=== PATIENT | male | born 1955 | race Hispanic/Latino ===

== ENCOUNTER 2023-11-06 20:57 | Inpatient (IN) | payer OTHER, SELFPAY ==
[2023-11-06] VITALS (13 sets, daily range): BP systolic 92–129; BP diastolic 54–80; PULSE 72–92; BMI 28.0
[2023-11-06] MEDS: TYLENOL 1000 MG PO ×2 (12:27→19:24)
[2023-11-06] MEDS: NSS 1000 IV ×3 (12:33→21:39)
--- NOTE | 2023-11-06 12:35 | ED.GENMED ---
History of Present Illness
General
Chief Complaint: Cold/Flu/URI Symptoms
Source: patient and family
Exam Limitations: none
Time Seen by Provider: 11/06/23 12:09
Nursing documentation reviewed up to this point in time: agreed with
History of Present Illness
History of Present Illness:
67 y/o M NIDDM
4 days headache, sore throat, bodyaches, nausea, lack of appetite, lightheadedness with standing
covid vaccinated x 3
no home covid tests
heaadche 08/22
no vision changes, room spinning dizziness, neck pain, neck stiffness, rash, chest pain, abd pain, cough
pt has taken something like asa for the headache but othing today and it hasn't helped
Past History
Past History
ED Past Medical History: HTN, NIDDM and Other (Diabetes, gout,)
ED Past Surgical History: None
Social History
Tobacco: Non-smoker
Alcohol: None
Personal:
Living: with family
Family History
Family History: Diabetes
Review of Systems
Review of Systems
Allergies reviewed?: Yes
All Other Systems: Not applicable
Phy Exam
Physical Exam
Physical Exam:
GENERAL: Alert , in no apparent distress
nontoxic
EYE: pupils equal and reactive
NECK: Supple, full rom
ENT: o/p clr, mmm. minimal pharyngeal erythema; no excduate
no ANA CRISTINA
ears normal
CARDIAC:mild tachycardia, no murmur
LUNGS: Clear breath sounds bilaterally, no acute respiratory distress, no wheezes/rales/rhonchi
ABDOMEN: Soft, minimal epigastric tenderness, no r/g, no cvat, normal bowel sounds
NEUROLOGICAL: Alert and oriented, no focal neuro deficits
SKIN: Warm and dry, skin intact. no rashes
MUSCULOSKELETAL: No edema, well perfused. neg jeaneth's sign
PSYCH: Normal and appropriate interaction.
Course
Orders/Labs/Results
Orders:
Orders
11/06/23 11:08
Electrocardiogram (*1) Urgent
Reason for Study: Tachycardia
EKG- Treatment ONCE
11/06/23 11:55
COVID-19 Antigen Urgent
Source: Nasal Swab
11/06/23 12:21
IV Insert/Care/Rem.- Treatment PRN
Acetaminophen [Tylenol] 1,000 mg PO NOW STA
11/06/23 12:30
0.9% Sodium Chloride 1000 ml [Nss] 1,000 ml IV Wide Open mls/hr
11/06/23 12:33
Complete Blood Count/With Diff Urgent
Comprehensive Metabolic Panel Urgent
Lipase Urgent
Comment: ADD ON
Lyme Progressive Urgent
Comment: ADD ON
Monotest Urgent
Comment: ADD ON
11/06/23 12:58
Add On- LAB Urgent
Tests Added?: lyme progressive, mono
11/06/23 13:05
Urinalysis Reflex To Culture Urgent
Date Specimen was Collected: 11/06/23
Time Specimen was Collected: 12:52
Urine Microscopic Reflex Cult Urgent
Urine Culture Urgent
[facility] Source: U
Specimen Description:
Date Specimen was Collected: 11/06/23
Time Specimen was Collected: 12:52
11/06/23 13:28
US Abdomen Complete/Upper Urgent
Comment:
Reason For Exam: fever, abd pain, vomiting, elev bili
11/06/23 16:04
CR Chest - 2 Views Urgent
Comment:
Reason For Exam: fever
11/06/23 16:06
Add On- LAB Urgent
Tests Added?: Blood Parasites
Add On- LAB Urgent
Tests Added?: lipase
11/06/23 16:23
CT Abd/Pel (IV only)-DH only Urgent
Comment:
Reason For Exam: upper belly pain, fever, vomiting
11/06/23 16:49
Blood Parasites Routine
[facility] Source: B
Specimen Description:
11/06/23 16:52
0.9% Sodium Chloride 1000 ml [Nss] 1,000 ml IV BOLUS
11/06/23 17:09
0.9% Sodium Chloride 1000 ml [Nss] 1,000 ml IV BOLUS
11/06/23 19:19
Blood Culture Urgent
[facility] Source: Blood/Venous
Specimen Description:
11/06/23 19:22
Acetaminophen [Tylenol] 1,000 mg .ROUTE .STK-MED ONE
11/06/23 19:24
Acetaminophen [Tylenol] 1,000 mg PO NOW STA
Abnormal Lab Results
11/06/23 11/06/23
12:33 13:05
RBC 3.80 L 10^6/uL
(4.70-6.10)
Hgb 11.3 L g/dL
(13.0-18.0)
Hct 31.6 L %
(39.0-52.0)
Abs Immat Gran (auto) 0.2 H 10^3/uL
(0-0.05)
Absolute Monos (auto) 1.9 H 10^3/uL
(0.1-0.6)
Immature Gran % 1.4 H %
(0-0.5)
Monocytes % 17.8 H %
(1.7-9.3)
Sodium 131 L mmol/L
(135-145)
Carbon Dioxide 20 L mmol/L
(22-30)
BUN 31 H mg/dl
(9-20)
Glucose 256 H mg/dl
(70-99)
Calcium 8.2 L mg/dl
(8.4-10.2)
Total Bilirubin 3.1 H mg/dl
(0.2-1.3)
AST 71 H U/L
(17-59)
Lipase 729 H U/L
(23-300)
Urine Ketones 1+ A
(Negative)
Ur Occult Blood Reflex 2+ A
(Negative)
Urine Nitrite (Reflex) Positive A
(Negative)
Urine Bilirubin 1+ A
(Negative)
Urine Urobilinogen 3+ A
(Neg - 1+)
Leukocyte Esterase Rfl Trace A
(Negative)
Urine RBC 3-6 A /HPF
(0-2)
Urine Bacteria (Reflex) Many A
(Negative)
Urine Glucose 1+ A
(Negative)
Urine Albumin (Reflex) 1+ A
(Neg - Trace)
11/06/23 12:33
11/06/23 12:33
Vital Signs
Initial and Last Documented VS:
Initial Vital Signs
Temp Pulse Resp BP Pulse Ox
98.3 F 108 17 127/80 99
11/06/23 11:04 11/06/23 11:04 11/06/23 11:04 11/06/23 11:04 11/06/23 11:04
Last Documented Vital Signs
Temp Pulse Resp BP Pulse Ox
102.8 F H 95 38 92/58 95
11/06/23 19:23 11/06/23 20:20 11/06/23 20:20 11/06/23 20:20 11/06/23 20:20
MDM/Problems Addressed
Differential Diagnosis Includes:
covid, mono, cholecystitis, babesiosis, lyme, uti
MDM/Problems Addressed:
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
4 days headache, myalgias, sore throat, abd pain, nausea, lack of appetite, fatigue
no known tick bites/rashes
febrile, nontoxic, no meningimus, minimal epigastric tenderness
labs show nl wbc, bun 31, cr normal, ast 71, t bili 3, lipase 729
US no cholecystitis; some sludge
cxr clear
ct some possible subtle pyelo, duodenitis, maybe mild pancreatic inflam
pt spiked fever again after his temp improved with t ylenol
i'm wondering if he has lyme or babesiosis
but his urine is nitrite pos, no wbc, but many bacteria; i thought it was false pos from the bili but with the ct finding, i did culture him and give rocephin; ordered lyme and periph smear for babesiosis\\
admit for further w/u
*Critical Care Note
Total Time (30-74mins, 75-104mins- exclusive of procedures): Not Applicable
ED Attending Note
-
Portions of this chart may have been created with voice recognition software.� Occasional wrong word or��sound alike� substitutions may have occurred due to the inherent limitations of voice recognition software.
Discharge Plan
Departure
Patient Disposition: Admit
Date of Disposition: 11/06/23
Time of Disposition: 18:43
Admit to: Med/Surg
Presentation/result/management discussed w/ accepting MD/DO: Hospitalist
Condition: Fair
Covid-19: Not Applicable
Discharge Problem:
Pyelonephritis, Fever, Hyperglycemia, Hyperbilirubinemia
Prescriptions:
No Action
metformin 500 MG tablet
500 mg PO BID@0800,1700
allopurinol 100 MG tablet
100 mg PO DAILY
Patient Comments:
pt says he took this morning, pharmacy says that he has not filled since july 2018 for 30 day supply
fenofibrate nanocrystallized 145 MG tablet
145 mg PO DAILY
atorvastatin 40 mg tablet
40 mg PO DAILY
glimepiride 4 mg tablet
4 mg PO DAILY
Referrals:
UNKNOWN - PT DOES,NOT KNOW [Family Provider] -
Interventions
Interventions:
*Risk Screen - Suicide Last Done: 11/06/23 12:07
*General Assessment Last Done: 11/06/23 12:36
*Neglect/Abuse Screening Last Done: 11/06/23 12:07
*ED COVID-19 Vaccine History Last Done: 11/06/23 12:36
ED- Pulmonary Assessment Last Done: 11/06/23 12:36
Discharge Date and Time
Print Language: PORTUGUESE
[2023-11-06 12:36] LABS: COVID-19 Antigen Negative (Negative)
[2023-11-06 13:17] LABS: ALT (SGPT) 47 U/L (0-50); AST (SGOT) 71 U/L (17-59); Albumin 3.8 g/dl (3.5-5.0); Alkaline Phosphatase 81 U/L (38-126); Blood Urea Nitrogen 31 mg/dl (9-20); Calcium 8.2 mg/dl (8.4-10.2); Carbon Dioxide 20 mmol/L (22-30); Chloride 98 mmol/L (98-107); Glucose 256 mg/dl (70-99); Potassium 4.3 mmol/L (3.5-5.1); Sodium 131 mmol/L (135-145); Total Bilirubin 3.1 mg/dl (0.2-1.3); Total Protein 7.5 g/dl (6.3-8.2); eGFR > 60.00
[2023-11-06 13:30] LABS: Urine Albumin 1+ (Neg - Trace); Urine Bilirubin 1+ (Negative); Urine Character Clear (Clear); Urine Color Brown; Urine Glucose 1+ (Negative); Urine Ketone 1+ (Negative); Urine Leukocyte Trace (Negative); Urine Nitrite Positive (Negative); Urine Occult Blood 2+ (Negative); Urine Urobilinogen 3+ (Neg - 1+)
[2023-11-06 13:32] LABS: Hematocrit 31.6 % (39.0-52.0); Hemoglobin 11.3 g/dL (13.0-18.0); Mean Corp Hgb Conc. 35.8 g/dL (33.0-37.0); Mean Corpuscular Hgb 29.7 pg (27.0-31.0); Mean Corpuscular Volume 83.2 fL (80.0-94.0); Red Cell Dist. Width 13.9 % (11.5-14.5); White Blood Cell Count 10.8 10^3/uL (4.8-10.8)
[2023-11-06 14:24] LABS: Urine Bacteria Many (Negative); Urine Mucus Few
[2023-11-06 14:25] LABS: Urine White Cell 0-2 /HPF (0-5)
[2023-11-06 14:35] LABS: % Basophils 0.3 % (0-2); % Eosinophils 0.1 % (0-6); % Immature Granulocytes 1.4 % (0-0.5); % Monocytes 17.8 % (1.7-9.3); % Neutrophils 58.4 % (42.2-75.2); Absolute Immature Granulocytes 0.2 10^3/uL (0-0.05); Absolute Lymphocytes 2.4 10^3/uL (1.2-3.4); Absolute Monocytes 1.9 10^3/uL (0.1-0.6); Absolute Neutrophils 6.3 10^3/uL (1.4-6.5); Nucleated Red Blood Cells % 0 % (-)
[2023-11-06 15:25] LABS: Monotest Negative (Negative)
[2023-11-06 17:50] LABS: Lipase 729 U/L (23-300)
--- NOTE | 2023-11-06 19:08 | PHANOTE ---
Med Rec Note:
Unable to interview pt due to pt sleeping heavily. Home meds compiled from Dr Rivera and ECW note from 06/25/23. Home meds left unconfirmed due to inability to confirm if pt is still taking, medications last filled 07/01/23 for 30 days supplies.
--- NOTE | 2023-11-06 20:44 | HPS.HSE ---
Family Physician
-
Family Physician: NOT KNOW UNKNOWN - PT DOES
Chief Complaint
-
Abd Pain, Fever / chills
History of Present Illness
Patient is a 68y M with PMH significant for DM-II who presents to ED complaining of abdominal pain, anorexia and fatigue. Patient states that his symptoms started on Wednesday. He reports discomfort in the epigastric region, poor appetite,
fevers / shaking chills and generalized fatigue. He reports headache and some dizziness. No sore throat or cough. No N/V/D. No urinary complaints.
He denies any rashes / skin lesions. No noted insect bites, embedded ticks, etc.
Patient denies any recent travel or any known sick contacts.
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
Medical History
Past Medical History
Past Medical History: Reports Other
Additional Past Medical History:
DM-II
ARDS (July 2019 - COVID negative x multiple tests)
Past Surgical History: Reports None
Social History
Tobacco: Non-smoker
Alcohol: Occasional
Drug: None
Family History
Family History: Not pertinent
Allergies / Home Medications
Allergies reflects when Allergies were last updated in [facility].
Home Medications with original date entered in [facility]
Allergy/Medication List:
Allergies
Allergy/AdvReac Type Severity Reaction Status Date / Time
No Known Allergies Allergy Verified 11/06/23 11:04
Home Medications
allopurinol 100 mg tablet 100 mg PO DAILY Gout 07/17/19
fenofibrate nanocrystallized 145 mg tablet 145 mg PO DAILY High cholesterol 07/17/19
metformin 500 mg tablet 500 mg PO BID@0800,1700 Diabetes 07/17/19
atorvastatin 40 mg tablet 40 mg PO DAILY 11/06/23
glimepiride 4 mg tablet 4 mg PO DAILY 11/06/23
Review of Systems
-
History Source: Patient
A 12 point ROS was completed and negative except as noted: Yes
Constitutional: Reports Fever, Fatigue and Chills
EENT: Denies Sore Throat
Respiratory: Denies Cough or Trouble Breathing
Cardiac: Denies Chest Pain or Palpitations
Abdomen/GI: Reports Abdominal Pain and Anorexia; Denies Nausea, Vomiting, Diarrhea, Constipated, Bloody Stools or Black Stools
: Denies Dysuria, Frequency, Flank Pain or Bleeding
Musculoskeletal: Reports Joint Pain and Muscle Pain; Denies Edema
Skin: Denies Itching or Rash
Neurological: Reports Dizzy and Headache
Psych: Denies Depression or Anxiety
Physical Exam
Vital Signs
Vital Signs
Temp Pulse Resp BP Pulse Ox
102.8 F H 95 38 92/58 95
11/06/23 19:23 11/06/23 20:20 11/06/23 20:20 11/06/23 20:20 11/06/23 20:20
Physical Exam
General: Other (68y M in no acute distress. Tactile fever. Mildly flushed appearing.)
HEENT: Other (Dry MM. Neck supple. No adenopathy.)
Respiratory: Clear; No Wheezes, Rales or Rhonchi
Cardiac: S1/S2 and Regular Rhythm; No Murmur
GI: Soft, Non Distended, Normal Bowel Sounds and Other (Pos tenderness in the RUQ and epigastric regions.)
Musculoskeletal: No Clubbing, No Cyanosis and No Edema
Neuro: AO x 3 and Nonfocal/grossly intact
Laboratory Results
-
11/06/23 12:33
11/06/23 12:33
Laboratory Results
Total Bilirubin 3.1 mg/dl (0.2-1.3) H 11/06/23 12:33
AST 71 U/L (17-59) H 11/06/23 12:33
ALT 47 U/L (0-50) 11/06/23 12:33
Alkaline Phosphatase 81 U/L (38-126) 11/06/23 12:33
Lipase 729 U/L (23-300) H 11/06/23 12:33
Impression/Plan
-
A/P: Patient is a 68y M with PMH significant for DM-II who presents to ED complaining of 4 days of abdominal pain, headache, fevers and chills.
Febrile Illness
Duodenitis / PUD
Sepsis secondary to the above
- Admit for further evaluation and treatment.
- Febrile to 103 here in the ED, tachycardia and tachypnea - positive SIRS criteria with suspected duodenitis as source.
- IVFs. Check lactate level now and follow if needed.
- Ceftriaxone given in the ED x 1 dose. UA noted - 0 WBC and no urinary symptoms - doubt UTI.
- Observe off of further empiric abx for now.
- ID evaluation for additional recommendations.
- Follow-up culture data and adjust treatment as needed.
- Clear liquid diet as tolerated for now.
- Follow for clinical improvement or any new symptoms / complaints.
Hyperbilirubinemia
Normocytic Anemia
- Abd US and CT scan with no significant biliary pathology appreciated.
- Check LDH, retic, haptoglobin, etc.
- Mild anemia at present with prior values all in normal range.
�- Peripheral smear sent for parasites.
DM-II
- Stable. Hold PO medications acutely.
- Follow glucose and cover with SSI as needed.
- Update A1C.
DVT Prophylaxis: SCDs
Code Status: Full
[2023-11-06 22:02] LABS: Reticulocyte Count 4.3 % (0.4-2.8)
[2023-11-06 22:34] LABS: Glucose - Point of Care 304 mg/dl (70-99)
[2023-11-06] MEDS: MOTRIN 400 MG PO (23:12)
[2023-11-06 23:47] LABS: Lactic Acid 1.1 mmol/L (0.7-2.0)
[2023-11-07 00:55] LABS: Glucose - Point of Care 293 mg/dl (70-99)
[2023-11-07 03:11] VITALS: BP 96/60
[2023-11-07] MEDS: NSS 1000 IV (05:17)
--- NOTE | 2023-11-07 06:30 | PTCARENOTE ---
When pt asleep HR briefly goes down to 40s- rhythm is regular but p waves not present for a few beats. 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 Strip mounted in chart.
[2023-11-07 07:02] LABS: Glucose - Point of Care 238 mg/dl (70-99)
[2023-11-07 07:05] VITALS: BP 123/69; BP 127/75; BP 131/70; PULSE 83; PULSE 91; PULSE 94
[2023-11-07 08:40] LABS: Hematocrit 28.3 % (39.0-52.0); Mean Corp Hgb Conc. 35.3 g/dL (33.0-37.0); Red Blood Cell Count 3.33 10^6/uL (4.70-6.10); Red Cell Dist. Width 14.5 % (11.5-14.5); White Blood Cell Count 8.3 10^3/uL (4.8-10.8)
[2023-11-07] MEDS: PROTONIX IV 40 MG IV (08:51)
[2023-11-07] MEDS: NSS (PRESERVATIVE FREE) 10 ML IV (08:56)
[2023-11-07 08:58] LABS: ALT (SGPT) 45 U/L (0-50); AST (SGOT) 80 U/L (17-59); Albumin 3.1 g/dl (3.5-5.0); Alkaline Phosphatase 71 U/L (38-126); Blood Urea Nitrogen 24 mg/dl (9-20); Calcium 7.4 mg/dl (8.4-10.2); Carbon Dioxide 19 mmol/L (22-30); Chloride 106 mmol/L (98-107); Direct Bilirubin 0.8 mg/dl (0.0-0.4); Estimated Creatinine Clearance 70 ml/min; Glucose 224 mg/dl (70-99); LDH 957 U/L (120-246); Potassium 3.7 mmol/L (3.5-5.1); Sodium 135 mmol/L (135-145); Total Bilirubin 2.6 mg/dl (0.2-1.3); Total Protein 6.6 g/dl (6.3-8.2); eGFR > 60.00
[2023-11-07] MEDS: ZITHROMAX INFUSION 250 IV (09:07)
[2023-11-07] MEDS: NOVOLOG FLEXPEN-LOW RESISTANCE 2 UNITS SC (09:30)
[2023-11-07] MEDS: MEPRON SUSPENSION 750 MG PO ×2 (09:31→20:32)
--- NOTE | 2023-11-07 10:24 | W.PN.HOSP.TC ---
Today's Communication/Plan
-
Continue antibiotics
Advance diet as tolerated
Monitor CBC
Assessment / Plan
Assessment / Plan
Gen-AAOx3, NAD
HEENT-NC, AT, anicteric, clear oral mm
Neck-supple
CV-reg, no M, +S1/S2
Lungs-clear B/L
Abd-soft, NT, ND
Ext-no edema
Musculoskeletal-no cyanosis, clubbing
Skin-warm and dry
Neuro-grossly non-focal
Psych-calm, cooperative
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 Now on azithromycin, atovaquone. ID following.
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 Recommend more aggressive use of insect repellent. Discussed with patient.
Doubt significance of duodenitis noted on CAT scan. Currently on clear liquid diet, advance as tolerated.
Hypotensive overnight but now blood pressure improved. Anticipate stopping IV fluids.
Acute hemolytic anemia -due to babesiosis. Hemoglobin 10.0 today, will monitor.
Hyponatremia -present on admission, resolved.
DM2 with hyperglycemia -glucose 224 this morning. Hemoglobin A1c pending. Hold oral agents, use insulin for now.
Hyperlipidemia -on atorvastatin, fenofibrate.
Full code
Updated patient's brother on the phone.
Anticipated Discharge: 24 - 48 hours
Subjective/Interval History
-
Date of Service: November 07, 2023
Patient seen and examined. Starting to feel better. No complaints.
Objective Data
-
Labs:
Laboratory Results
11/07/23
07:17
WBC 8.3
Hgb 10.0 L
Hct 28.3 L
Plt Count
Sodium 135
Potassium 3.7
Chloride 106
Carbon Dioxide 19 L
BUN 24 H
Creatinine 0.8
Glucose 224 H
Calcium 7.4 L
Total Bilirubin 2.6 H
AST 80 H
ALT 45
Alkaline Phosphatase 71
Vital Signs:
Vital Signs
Temp Pulse Resp BP Pulse Ox
98 F 83 16 131/70 97
11/07/23 07:05 11/07/23 07:05 11/07/23 07:05 11/07/23 07:05 11/07/23 07:05
I&O
11/06/23 11/07/23 11/08/23
06:59 06:59 06:59
Intake Total 240 / 240
Output Total 500 / 500
Balance -260 / -260
Review of Systems
-
History Source: Patient
All other systems: Reviewed and negative
[2023-11-07] MEDS: TYLENOL 650 MG PO ×2 (10:51→16:54)
[2023-11-07 11:00] VITALS: BP 113/65
[2023-11-07 11:48] LABS: Glucose - Point of Care 344 mg/dl (70-99)
[2023-11-07] MEDS: NOVOLOG FLEXPEN-LOW RESISTANCE 4 UNITS SC ×2 (11:57→16:55)
--- NOTE | 2023-11-07 12:45 | CON.ID ---
Consultation
-
Date/Time Consultation Requested: 11/06/2023 2121
Date/Time Consultation Performed: 11/07/2023 1230
Requesting Provider: Dr. Velazquez
Performing Provider: Dr. Purdy
Reason for Consultation: Fever
Chief Complaint / Past History
History of Present Illness
Dago Barger is a 68-year-old man being evaluated at the quest of Dr. Velazquez in regards to fevers. History is obtained from chart review, along with patient interview.
The patient has a significant past medical history of diabetes and hypertension and presents to [facility] on 11/05 following the development of fever and bodyaches. He reports that he was in his usual state of health until approximately 4
days ago when he began to have headache, along with sore throat, diffuse bodyaches and nausea. He also admitted to developing some dizziness when standing. He denied any neck stiffness or neck pain.
Workup in the emergency room revealed mild anemia, along with an elevated bilirubin and mild transaminitis. In discussion with the admitting physician, a blood parasite test was requested, which was now been found to be positive for Babesia.
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 He does not recall seeing any ticks on him, but does not routinely use insect repellent. He has not had any recent travel outside the area.
Past History
Additional Past Medical History:
HTN
DM
Gout
Dyslipidemia
Past Surgical History: None
Allergy History:
No Known Allergies Allergy (Verified 11/06/23 11:04)
Medications Reviewed: Yes
Current Antibiotics:
Azithromycin
Mepron
Social History
Tobacco: Non-Smoker
Alcohol: Occasional
Drug: None
Employment: Employed
Family History
Family History: Not Pertinent
Review of Systems
Vital Signs
Temp Pulse Resp BP Pulse Ox
100.6 F H 102 22 113/65 97
11/07/23 11:00 11/07/23 11:00 11/07/23 11:00 11/07/23 11:00 11/07/23 11:00
Physical Exam
Physical Exam
Constitutional: No Acute Distress, Comfortable and Non-toxic
Head: Normocephalic
Eyes: Pupils Equal, Pupils Round, No Conjunctival Hemorrhage and Sclera Anicteric
Oral: No Thrush and No Ulcers
Cardiovascular: Regular Rate and S1/S2; Negative S3/S4
Pulmonary: Clear; Negative Wheezes, Rales or Rhonchi
Gastrointestinal: Soft, Non Tender, Non Distended and Normal Bowel Sounds
Neurological: Awake and Alert
Psychological: Calm
.
Lab / Diagnostic Study Results
11/07/23 07:17
11/07/23 07:17
Abs Immat Gran (auto) 0.2 10^3/uL (0-0.05) H 11/06/23 12:33
Absolute Neuts (auto) 6.3 10^3/uL (1.4-6.5) 11/06/23 12:33
Absolute Lymphs (auto) 2.4 10^3/uL (1.2-3.4) 11/06/23 12:33
Absolute Monos (auto) 1.9 10^3/uL (0.1-0.6) H 11/06/23 12:33
Absolute Basos (auto) 0.0 10^3/uL (0-0.2) 11/06/23 12:33
Immature Gran % 1.4 % (0-0.5) H 11/06/23 12:33
Neutrophils % 58.4 % (42.2-75.2) 11/06/23 12:33
Lymphocytes % 22.0 % (20.5-51.1) 11/06/23 12:33
Monocytes % 17.8 % (1.7-9.3) H 11/06/23 12:33
Eosinophils % 0.1 % (0-6) 11/06/23 12:33
Basophils % 0.3 % (0-2) 11/06/23 12:33
Lactic Acid 1.1 mmol/L (0.7-2.0) 11/06/23 23:17
Microbiology Results
Micro:
11/06/23 22:32 Streptococcus Screen ([facility]) - Preliminary
Throat/Pharynx Culture in Progress
Streptococcus Rapid Screen - Final
Rapid Strep Screen (Group A) Negative
11/06/23 13:05 Urine Culture - Final
Urine NO GROWTH
11/06/23 16:49 Blood Parasites Smear - Final
Blood/Venous Babesia species
11/06/23 19:19 Blood Culture - Pending
Blood/Venous
Imaging:
11/06/2023 CT abdomen/pelvis with IV contrast: Moderate thickening of the wall of the first and second portion of the duodenum with slight stranding of the adjacent fat, and these findings would be suggestive of duodenitis/peptic ulcer disease. Main
differential consideration would be reactive duodenitis from adjacent pancreatitis, but the stranding does not appear to be centered in the pancreas.
Assessment / Plan
Babesiosis
Anemia
Fever
HTN
DM
Gout
Dyslipidemia
Recommendations:
Lab reported positive Babesia smear earlier this morning, and orders for Azithromycin and Mepron placed.
Follow for additional fevers.
Will check serial peripheral smear is for parasite load.
Monitor white count and temperature curve, along with LDH.
Care Review
Plan reviewed with: Physician (Hospitalist)
[2023-11-07 12:59] LABS: Magnesium 2.4 mg/dl (1.6-2.3)
[2023-11-07 14:29] LABS: Glycohemoglobin (HgbA1c) 8.7 % (4.0-5.6)
[2023-11-07 15:26] VITALS: BP 128/70
--- NOTE | 2023-11-07 16:15 | CM ---
Nepali speaking patient with Dx Sepsis due to babesiosis. Room air. Receiving IV Abx.
Spoke with patient's sons Obey ChowdaryKempton & Mykel Graves;
neither son has been in contact recently with their father and cannot provide all details.
The patient resides alone in a one story house and his girlfriend had been staying with him- they are unsure she is still there.
Patient had been independent in ADLs and ambulation without using any assistive devices.
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
DME - had home O2 in 2020 when he had Covid - sons unsure if he still has, had a glucometer in the past
Prior [facility] per chart.
No prior SNF.
Sons suggest contacting patient's brother Ronald.
Phone call to Ronald; left message requesting callback for d/c planning.
Plan follow up with patient and brother.
[2023-11-07 16:53] LABS: Glucose - Point of Care 313 mg/dl (70-99)
[2023-11-07] MEDS: NOVOLOG FLEXPEN 6 UNITS SC (16:55)
[2023-11-07 19:55] VITALS: BP 90/56; BP 92/57; BP 98/57; PULSE 86; PULSE 88; PULSE 94
[2023-11-07 21:48] LABS: Glucose - Point of Care 332 mg/dl (70-99)
[2023-11-07] MEDS: LANTUS 0.1 UNITS SC (22:55)
[2023-11-07] MEDS: NOVOLOG FLEXPEN 4 UNITS SC (22:57)
[2023-11-07 23:05] LABS: Glucose - Point of Care 305 mg/dl (70-99)
[2023-11-07 23:30] VITALS: BP 122/63
[2023-11-08] VITALS (8 sets, daily range): BP systolic 90–112; BP diastolic 52–64; PULSE 81–97; BMI 28.0
[2023-11-08 01:15] LABS: Glucose - Point of Care 246 mg/dl (70-99)
[2023-11-08] MEDS: TYLENOL 650 MG PO ×2 (01:15→21:44)
[2023-11-08 07:12] LABS: Glucose - Point of Care 229 mg/dl (70-99)
[2023-11-08 07:41] LABS: ALT (SGPT) 37 U/L (0-50); AST (SGOT) 66 U/L (17-59); Albumin 2.5 g/dl (3.5-5.0); Alkaline Phosphatase 61 U/L (38-126); Blood Urea Nitrogen 19 mg/dl (9-20); Calcium 7.4 mg/dl (8.4-10.2); Carbon Dioxide 20 mmol/L (22-30); Chloride 107 mmol/L (98-107); Estimated Creatinine Clearance 80 ml/min; Glucose 206 mg/dl (70-99); Magnesium 2.3 mg/dl (1.6-2.3); Potassium 3.2 mmol/L (3.5-5.1); Sodium 135 mmol/L (135-145); Total Bilirubin 1.7 mg/dl (0.2-1.3); Total Protein 5.8 g/dl (6.3-8.2); eGFR > 60.00
[2023-11-08 08:42] LABS: Hemoglobin 7.9 g/dL (13.0-18.0); Mean Corp Hgb Conc. 35.9 g/dL (33.0-37.0); Mean Corpuscular Hgb 30.5 pg (27.0-31.0); Mean Corpuscular Volume 84.9 fL (80.0-94.0); Platelet Count 83 10^3/uL (130-400); Red Blood Cell Count 2.59 10^6/uL (4.70-6.10); Red Cell Dist. Width 14.6 % (11.5-14.5); White Blood Cell Count 7.1 10^3/uL (4.8-10.8)
[2023-11-08 09:13] LABS: % Basophils 0.3 % (0-2); % Eosinophils 0.4 % (0-6); % Immature Granulocytes 2.8 % (0-0.5); % Lymphocytes 34.2 % (20.5-51.1); % Monocytes 12.9 % (1.7-9.3); % Neutrophils 49.4 % (42.2-75.2); Absolute Immature Granulocytes 0.2 10^3/uL (0-0.05); Absolute Lymphocytes 2.4 10^3/uL (1.2-3.4); Absolute Monocytes 0.9 10^3/uL (0.1-0.6); Absolute Neutrophils 3.5 10^3/uL (1.4-6.5); Nucleated Red Blood Cells % 0 % (-)
[2023-11-08] MEDS: NSS (PRESERVATIVE FREE) 10 ML IV (09:14)
[2023-11-08] MEDS: PROTONIX IV 40 MG IV (09:15)
[2023-11-08] MEDS: KCL 40 MEQ PO (09:15)
[2023-11-08] MEDS: NOVOLOG FLEXPEN-LOW RESISTANCE 2 UNITS SC (09:15)
[2023-11-08] MEDS: MEPRON SUSPENSION 750 MG PO ×2 (09:15→21:42)
[2023-11-08] MEDS: FLUSH (NSS) 1 FLUSH IV (09:15)
[2023-11-08] MEDS: NOVOLOG FLEXPEN 6 UNITS SC ×3 (09:16→17:43)
[2023-11-08] MEDS: ZITHROMAX INFUSION 250 IV (09:17)
--- NOTE | 2023-11-08 11:05 | W.PN.HOSP.TC ---
Today's Communication/Plan
-
ID recs
trend cbc
trend fever curve
replete k
Assessment / Plan
Assessment / Plan
Gen-AAOx3, NAD
HEENT-NC, AT, anicteric, clear oral mm
Neck-supple
CV-reg, no M, +S1/S2
Lungs-clear B/L
Abd-soft, NT, ND
Ext-no edema
Musculoskeletal-no cyanosis, clubbing
Skin-warm and dry
Neuro-grossly non-focal
Psych-calm, cooperative
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 Now on azithromycin, atovaquone. ID following.
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 Recommend more aggressive use of insect repellent. Discussed with patient.
Doubt significance of duodenitis noted on CAT scan. PPI Started.
Smear Parasitemia load decreasing
Hypotensive resolved with IVF. Fever continues and expected.
Acute hemolytic anemia -due to babesiosis. Hemoglobin 7.9 today, will monitor. Transfuse for hgb <7.
Hypokalemia-replete/monitor
Hyponatremia -present on admission, resolved.
DM2 with hyperglycemia -glucose 224 this morning. Hemoglobin A1c at 8.7. Hold oral agents, use insulin for now.
Hyperlipidemia -on atorvastatin, fenofibrate.
Full code
Anticipated Discharge: > 48 hours
Subjective/Interval History
-
Date of Service: November 08, 2023
Continues to spike fever
feeling mildly weak
Objective Data
-
Labs:
Laboratory Results
11/08/23
06:36
WBC 7.1
Hgb 7.9 L D
Hct 22.0 L
Plt Count 83 L
Sodium 135
Potassium 3.2 L
Chloride 107
Carbon Dioxide 20 L
BUN 19
Creatinine 0.7
Glucose 206 H
Calcium 7.4 L
Total Bilirubin 1.7 H
AST 66 H
ALT 37
Alkaline Phosphatase 61
Vital Signs:
Vital Signs
Temp Pulse Resp BP Pulse Ox
98.4 F 70 19 103/63 99
11/08/23 08:00 11/08/23 08:00 11/08/23 08:00 11/08/23 08:00 11/08/23 09:10
I&O
11/07/23 11/08/23 11/09/23
06:59 06:59 06:59
Intake Total 240 / 240 2125 / 2125
Output Total 500 / 500 1225 / 1225
Balance -260 / -260 900 / 900
[2023-11-08 11:48] LABS: Glucose - Point of Care 353 mg/dl (70-99)
[2023-11-08] MEDS: NOVOLOG FLEXPEN-LOW RESISTANCE 5 UNITS SC (12:21)
[2023-11-08 13:22] LABS: Haptoglobin <10 mg/dL (30-200)
--- NOTE | 2023-11-08 13:37 | W.PN.ID1 ---
Date of Service
Date of Service: November 08, 2023
Today's Communication
Continue antibiotics.
Assessment / Plan
Babesiosis
Anemia
Fever
HTN
DM
Gout
Dyslipidemia
Recommendations:
Patient feeling improved today.
Parasite load decreased.
Follow for additional fevers.
Follow serial peripheral smear is for parasite load.
Monitor white count and temperature curve, along with LDH.
Chief Complaint
-: Other (Babesiosis)
Subjective / Review of Systems
Patient seen and examined. Reports feeling somewhat improved today.
Vital Signs / Physical Exam
Vital Signs
Vital Signs
Temp Pulse Resp BP Pulse Ox
99.8 F 84 17 109/54 99
11/08/23 12:00 11/08/23 12:00 11/08/23 12:00 11/08/23 12:00 11/08/23 12:00
Physical Exam
Constitutional: No Acute Distress, Comfortable and Non-toxic
Eyes: No Conjunctival Hemorrhage and Sclera Anicteric
Cardiovascular: S1/S2; Negative S3/S4
Pulmonary: Clear; Negative Wheezes or Rales
Gastrointestinal: Soft, Non Tender and Non Distended
Neurological: Awake and Alert
Psychological: Calm
Objective Data
Lab Data
Lab Results
11/08/23 06:36
11/08/23 06:36
Estimated Creat Clear 80 ml/min 11/08/23 06:36
Lactic Acid 1.1 mmol/L (0.7-2.0) 11/06/23 23:17
Total Bilirubin 1.7 mg/dl (0.2-1.3) H 11/08/23 06:36
AST 66 U/L (17-59) H 11/08/23 06:36
ALT 37 U/L (0-50) 11/08/23 06:36
Alkaline Phosphatase 61 U/L (38-126) 11/08/23 06:36
Most recent labs reviewed.
Micro Results:
11/08/23 06:36 Blood Parasites Smear - Final
Blood/Venous Babesia species (0.5% Parasitemia)
11/06/23 22:32 Streptococcus Screen ([facility]) - Final
Throat/Pharynx No Beta Hemolytic Streptococci Isolated
Streptococcus Rapid Screen - Final
Rapid Strep Screen (Group A) Negative
11/06/23 19:19 Blood Culture - Preliminary
Blood/Venous No Growth in 24 hours- Final report to follow
11/06/23 13:05 Urine Culture - Final
Urine NO GROWTH
11/06/23 16:49 Blood Parasites Smear - Final
Blood/Venous Babesia species (2.4% Parasitemia)
dsf
Imaging:
11/06/2023 CT abdomen/pelvis with IV contrast: Moderate thickening of the wall of the first and second portion of the duodenum with slight stranding of the adjacent fat, and these findings would be suggestive of duodenitis/peptic ulcer disease. Main
differential consideration would be reactive duodenitis from adjacent pancreatitis, but the stranding does not appear to be centered in the pancreas.
[2023-11-08 14:45] LABS: Lyme Antibody Screen, EIA Negative (Negative)
--- NOTE | 2023-11-08 16:52 | SUR.PHASEI ---
Pt AAO x3, QUIÑONES well, ambulatory in room/bass with minimal assistance/walker, rickey well; currently denies weakness/dizziness. VSS. Telemetry:NSR. On room air- pulse ox 97%, no c/o SOB. Abd soft, rickey PO well. Voiding in BR without difficulty
Resting in bed at present, no c/o. Will continue to monitor.
[2023-11-08 17:20] LABS: Glucose - Point of Care 260 mg/dl (70-99)
[2023-11-08] MEDS: NOVOLOG FLEXPEN-LOW RESISTANCE 3 UNITS SC (17:43)
[2023-11-08 19:51] LABS: Hepatitis C Antibody Negative (Negative)
[2023-11-08 21:37] LABS: Glucose - Point of Care 227 mg/dl (70-99)
[2023-11-08] MEDS: LANTUS 0.1 UNITS SC (21:42)
[2023-11-08 22:43] LABS: CMV IgM Antibody 35.5 AU/mL (<=29.9)
[2023-11-09] VITALS (7 sets, daily range): BP systolic 92–107; BP diastolic 55–63
[2023-11-09 05:22] LABS: Blood Urea Nitrogen 20 mg/dl (9-20); Calcium 7.6 mg/dl (8.4-10.2); Carbon Dioxide 22 mmol/L (22-30); Chloride 107 mmol/L (98-107); Estimated Creatinine Clearance 70 ml/min; Glucose 195 mg/dl (70-99); LDH 886 U/L (120-246); Potassium 3.7 mmol/L (3.5-5.1); Sodium 133 mmol/L (135-145); eGFR > 60.00
[2023-11-09 05:56] LABS: Hematocrit 19.7 % (39.0-52.0); Mean Corp Hgb Conc. 35.5 g/dL (33.0-37.0); Mean Corpuscular Hgb 29.7 pg (27.0-31.0); Mean Corpuscular Volume 83.5 fL (80.0-94.0); Mean Platelet Volume 12.2 fL (7.4-10.4); Platelet Count 92 10^3/uL (130-400); Red Blood Cell Count 2.36 10^6/uL (4.70-6.10); Red Cell Dist. Width 14.6 % (11.5-14.5); White Blood Cell Count 7.9 10^3/uL (4.8-10.8)
[2023-11-09 07:09] LABS: % Basophils 0.5 % (0-2); % Eosinophils 1.4 % (0-6); % Immature Granulocytes 4.3 % (0-0.5); % Lymphocytes 42.4 % (20.5-51.1); % Monocytes 16.5 % (1.7-9.3); % Neutrophils 34.9 % (42.2-75.2); Absolute Eosinophils 0.1 10^3/uL (0-0.7); Absolute Immature Granulocytes 0.3 10^3/uL (0-0.05); Absolute Lymphocytes 3.4 10^3/uL (1.2-3.4); Absolute Monocytes 1.3 10^3/uL (0.1-0.6); Absolute Neutrophils 2.8 10^3/uL (1.4-6.5); Nucleated Red Blood Cells % 0.4 % (-)
[2023-11-09 08:26] LABS: Glucose - Point of Care 231 mg/dl (70-99)
[2023-11-09] MEDS: ZITHROMAX 500 MG PO (08:49)
[2023-11-09] MEDS: NSS (PRESERVATIVE FREE) 10 ML IV (08:51)
[2023-11-09] MEDS: MEPRON SUSPENSION 750 MG PO (08:52)
[2023-11-09] MEDS: PROTONIX IV 40 MG IV (08:52)
[2023-11-09] MEDS: NOVOLOG FLEXPEN 6 UNITS SC ×3 (08:53→17:18)
[2023-11-09] MEDS: NOVOLOG FLEXPEN-LOW RESISTANCE 2 UNITS SC (08:53)
--- NOTE | 2023-11-09 11:43 | W.PN.HOSP.TC ---
Addendum entered and electronically signed by Gerardo Bee MD 11/09/23 16:03:
Patient afebrile. discussed case with infectious disease patient can be discharged on additional 7 days of antibiotics. Patient hemoglobin post blood transfusion was 9. Okay for discharge.
More than 30 minutes spent in discharge including
Final examination of the patient
Summarizing hospital stay
Instructions for continuing care to all relevant caregivers
Preparation of discharge records, prescriptions, and referral forms
Total time spent (in minutes): 54
Original Note:
Today's Communication/Plan
-
ID recs
transfuse 1u PRBC
po abx
Assessment / Plan
Assessment / Plan
Gen-AAOx3, NAD
HEENT-NC, AT, anicteric, clear oral mm
Neck-supple
CV-reg, no M, +S1/S2
Lungs-clear B/L
Abd-soft, NT, ND
Ext-no edema
Musculoskeletal-no cyanosis, clubbing
Skin-warm and dry
Neuro-grossly non-focal
Psych-calm, cooperative
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 Now on azithromycin, atovaquone. ID following.
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 Recommend more aggressive use of insect repellent. Discussed with patient.
Doubt significance of duodenitis noted on CAT scan. PPI Started.
Smear Parasitemia load decreasing. LDH downtrending
Remains afebrile. Last fever noted on 11/07 at 1:15 am.
Hypotensive resolved with IVF.
Acute hemolytic anemia -due to babesiosis. Hemoglobin 7 today, and will transfuse 1u PRBC today.
Hypokalemia-replete/monitor
Hyponatremia -present on admission, resolved.
DM2 with hyperglycemia -glucose 231 this morning. Hemoglobin A1c at 8.7. Hold oral agents, use insulin for now.
Hyperlipidemia -on atorvastatin, fenofibrate.
Full code
Anticipated Discharge: Within 24 hours
Subjective/Interval History
-
Date of Service: November 09, 2023
states feeling alot better
tolerating diet
afebrile
Objective Data
-
Labs:
Laboratory Results
11/09/23
04:33
WBC 7.9
Hgb 7.0 L
Hct 19.7 L*
Plt Count 92 L
Sodium 133 L
Potassium 3.7
Chloride 107
Carbon Dioxide 22
BUN 20
Creatinine 0.8
Glucose 195 H
Calcium 7.6 L
Vital Signs:
Vital Signs
Temp Pulse Resp BP Pulse Ox
98.3 F 71 20 96/63 98
11/09/23 07:11 11/09/23 07:11 11/09/23 07:11 11/09/23 07:11 11/09/23 07:11
I&O
11/08/23 11/09/23 11/10/23
06:59 06:59 06:59
Intake Total 2125 / 2125 1350 / 1350
Output Total 1225 / 1225
Balance 900 / 900 1350 / 1350
[2023-11-09 12:05] LABS: Glucose - Point of Care 266 mg/dl (70-99)
[2023-11-09] MEDS: NOVOLOG FLEXPEN-LOW RESISTANCE 3 UNITS SC (12:32)
--- NOTE | 2023-11-09 15:15 | W.PN.ID1 ---
Date of Service
Date of Service: November 09, 2023
Today's Communication
Continue Azithromycin and atovaquone
Assessment / Plan
Babesiosis
Anemia
Fever
HTN
DM
Gout
Dyslipidemia
Recommendations:
Patient feeling improved today.
Parasite load decreased.
Fever improved. Marked anemia; receiving transfusion.
Continue with azithromycin and atovaquone to complete a 10 day course (7 more days)
Chief Complaint
-: Other (Babesiosis)
Subjective / Review of Systems
Review of Systems: No Fever and No Chills
Vital Signs / Physical Exam
Vital Signs
Vital Signs
Temp Pulse Resp BP Pulse Ox
98.6 F 71 16 92/55 97
11/09/23 12:43 11/09/23 12:43 11/09/23 12:43 11/09/23 12:43 11/09/23 12:35
Physical Exam
Constitutional: No Acute Distress, Comfortable and Non-toxic
Eyes: No Conjunctival Hemorrhage and Sclera Anicteric
Cardiovascular: S1/S2; Negative S3/S4
Pulmonary: Clear; Negative Wheezes or Rales
Gastrointestinal: Soft, Non Tender and Non Distended
Neurological: Awake, Alert and Oriented
Psychological: Calm
Objective Data
Lab Data
Lab Results
11/09/23 04:33
11/09/23 04:33
Estimated Creat Clear 70 ml/min 11/09/23 04:33
Lactic Acid 1.1 mmol/L (0.7-2.0) 11/06/23 23:17
Total Bilirubin 1.7 mg/dl (0.2-1.3) H 11/08/23 06:36
AST 66 U/L (17-59) H 11/08/23 06:36
ALT 37 U/L (0-50) 11/08/23 06:36
Alkaline Phosphatase 61 U/L (38-126) 11/08/23 06:36
Most recent labs reviewed.
Micro Results:
11/09/23 04:33 Blood Parasites Smear - Final
Blood/Venous Babesia species
11/06/23 19:19 Blood Culture - Preliminary
Blood/Venous No Growth in 48 hours- Final report to follow
11/08/23 06:36 Blood Parasites Smear - Final
Blood/Venous Babesia species
11/06/23 22:32 Streptococcus Screen ([facility]) - Final
Throat/Pharynx No Beta Hemolytic Streptococci Isolated
Streptococcus Rapid Screen - Final
Rapid Strep Screen (Group A) Negative
11/06/23 13:05 Urine Culture - Final
Urine NO GROWTH
11/06/23 16:49 Blood Parasites Smear - Final
Blood/Venous Babesia species
Imaging:
11/06/2023 CT abdomen/pelvis with IV contrast: Moderate thickening of the wall of the first and second portion of the duodenum with slight stranding of the adjacent fat, and these findings would be suggestive of duodenitis/peptic ulcer disease. Main
differential consideration would be reactive duodenitis from adjacent pancreatitis, but the stranding does not appear to be centered in the pancreas.
Care Review
Plan reviewed with: Physician (Hospitalist)
--- NOTE | 2023-11-09 15:26 | W.DCSUMMARY ---
Discharge Summary
Discharge Data
Date of Admission: 11/06/23
Date of Discharge: 11/09/23
-
Pending Results: No
Hospital Course
68-year-old male past medical history of CAD, diabetes mellitus, hyperlipidemia who is presenting from home with complaints of abdominal pain anorexia and fatigue. Patient was complaining of fever chills and fatigue. Patient on admission was found
to have mild anemia. Patient was found to have sepsis. Patient was also off antibiotics after receiving ceftriaxone in the ER. Urine culture was negative. Patient blood smear came back positive for babesiosis. ID was consulted. Patient was
started on azithromycin and atovaquone. Patient was also found to have mild anemia. Patient hemoglobin down trended secondary to hemolysis. Patient required 1 unit of PRBC with up titration of hemoglobin to 9 on discharge. Patient LDH level
slowly down trended. Patient parasite levels continue to downtrend. Patient remained afebrile for greater than 24 hours. Patient will be discharged home on p.o. azithromycin and atovaquone for additional 1 week. Recommend repeat CBC and CMP in 1
week..
Discharge Plan
-
Patient Disposition: Home (Routine Discharge)
Discharge Diagnosis/Procedures: Sepsis secondary to babesiosis
Acute hemolytic anemia status post blood transfusion
Hypokalemia
Hyponatremia
Condition: Fair
Diet: As tolerated and Diabetic, Carb Controlled
Activity: No restrictions
Blood Work: CBC and CMP in 1 week with primary doctor.
Referrals:
UNKNOWN - PT DOES,NOT KNOW [Family Provider] -
Prescriptions:
New
azithromycin 250 mg Tablet
500 mg PO DAILY 7 Days Qty: 14 0RF
atovaquone 750 mg/5 mL Suspension
750 mg PO Q12 7 Days Qty: 70 0RF
Continued
metformin 500 MG tablet
500 mg PO BID@0800,1700
allopurinol 100 MG tablet
100 mg PO DAILY
Patient Comments:
pt says he took this morning, pharmacy says that he has not filled since july 2018 for 30 day supply
fenofibrate nanocrystallized 145 MG tablet
145 mg PO DAILY
glimepiride 4 mg tablet
4 mg PO DAILY
Held
atorvastatin 40 mg tablet
40 mg PO DAILY
Hold Instructions: Resume on 11/15/23.
Discharge Orders:
Discharge Patient (As Directed); Ordered 11/09/23
Ordered By: Gerardo Bee
Discharge Date and Time
Print Language: DANISH
[2023-11-09 15:51] LABS: Hematocrit 24.5 % (39.0-52.0)
--- NOTE | 2023-11-09 16:53 | CM ---
ASHLEY met with Dago and several family members today in his room. Dago will be returning home with no needs identified. He anticipates returning to work as soon as he is able.
Plan: Discharge to home with no needs.
[2023-11-09 16:59] LABS: Glucose - Point of Care 155 mg/dl (70-99)
[2023-11-09] MEDS: NOVOLOG FLEXPEN-LOW RESISTANCE 1 UNITS SC (17:18)
== END 2023-11-09 18:05 | disposition home or self-care (01) | DRG 872 ==
LOC: 4 EAST ACU 20:57
PROVIDERS: Hospitalist; Nurse Practitioner Gerontology; Physician Assistant; ADMITTING PHYSICIAN Hospitalist; ATTENDING PHYSICIAN Hospitalist; CONSULT PHYSICIAN Internal Medicine Infectious Disease; EMERGENCY PHYSICIAN Emergency Medicine
PROC: 30233N1 Transfusion of Nonautologous Red Blood Cells into Peripheral Vein, Percutaneous Approach (ICD-10-PCS; 2023-11-09)
DX: A41.89 Other specified sepsis (principal); D59.9 Acquired hemolytic anemia, unspecified; B60.00 Babesiosis, unspecified; E87.1 Hypo-osmolality and hyponatremia; N12 Tubulo-interstitial nephritis, not specified as acute or chronic; E11.65 Type 2 diabetes mellitus with hyperglycemia; I10 Essential (primary) hypertension; K29.80 Duodenitis without bleeding; E78.5 Hyperlipidemia, unspecified; I25.10 Atherosclerotic heart disease of native coronary artery without angina pectoris; M10.9 Gout, unspecified; E80.7 Disorder of bilirubin metabolism, unspecified; E87.6 Hypokalemia; R06.82 Tachypnea, not elsewhere classified; R74.01 Elevation of levels of liver transaminase levels; R63.0 Anorexia; Z68.28 Body mass index [BMI] 28.0-28.9, adult; Z79.84 Long term (current) use of oral hypoglycemic drugs; Z79.899 Other long term (current) drug therapy
CPT/HCPCS: 71046; 74177; 76700; 80048; 80053; 81003; 81015; 82248; 82962; 83010; 83036; 83605; 83615; 83690; 83735; 84443; 85014; 85018; 85025; 85027; 85045; 86308; 86618; 86645; 86803; 86850; 86900; 86901; 86920; 87015; 87040; 87070; 87086; 87147; 87207; 87811; 87880; 93005; 96360; 99285; P9016; Q9967

== ENCOUNTER → 2024-08-16 09:37 | Outpatient (REF) | payer OTHER, SELFPAY | LOC: RAD 09:37 | PROVIDERS: ATTENDING PHYSICIAN Internal Medicine | DX: R07.9 Chest pain, unspecified (principal) | CPT/HCPCS: 71046; 93005 ==

== ENCOUNTER → 2024-08-24 14:40 | Outpatient (REF) | payer OTHER, SELFPAY | LOC: RCS 14:40 | PROVIDERS: ATTENDING PHYSICIAN Internal Medicine Cardiovascular Disease; FAMILY PHYSICIAN Internal Medicine | DX: R00.1 Bradycardia, unspecified (principal); R42 Dizziness and giddiness; R07.9 Chest pain, unspecified | CPT/HCPCS: 93306 ==

== ENCOUNTER → 2024-09-05 06:51 | Outpatient (REF) | payer OTHER, SELFPAY | LOC: RCS 06:51 | PROVIDERS: ATTENDING PHYSICIAN Internal Medicine Cardiovascular Disease; FAMILY PHYSICIAN Internal Medicine | DX: R00.1 Bradycardia, unspecified (principal); R42 Dizziness and giddiness; R07.9 Chest pain, unspecified | CPT/HCPCS: 78452; 93017; A9500 ==